=== PATIENT | female | born 1955 | race Caucasian/White ===

== ENCOUNTER 2017-08-18 12:06 | Emergency (ER) | payer OTHER ==
[~2017-08-18] VITALS: Ht 157.5 cm; Wt 70.0 kg
[2017-08-18 12:16] VITALS: Ht 157.5 cm; Wt 70.0 kg
[2017-08-18] MEDS ORDERED: IPRATROPIUM (NEB) 0.5 MG/2.5 ML AMP NEB STA (12:27)
[2017-08-18] MEDS ORDERED: ALBUTEROL 0.5% (NEB) 2.5 MG/0.5 ML AMP NEB STA (12:27)
[2017-08-18 12:42] LABS: BASOPHIL # 0.1 10^3/ul (0.0-0.1); BASOPHILS % 1.1 % (0.0-2.0); EOSINOPHILS # 0.2 10^3/ul (0.0-0.5); EOSINOPHILS % 2.9 % (0.0-7.0); HEMATOCRIT 40.4 % (37.0-47.0); HEMOGLOBIN 13.9 g/dl (12.0-16.0); LYMPHOCYTES # 2.4 10^3/ul (0.8-2.9); LYMPHOCYTES % 33.7 % (15.0-51.0); MEAN CORPUSCULAR HEMOGLOBIN 31.5 pg (29.0-33.0); MEAN CORPUSCULAR HGB CONC 34.4 g/dl (32.0-37.0); MEAN CORPUSCULAR VOLUME 91.6 fl (82.0-101.0); MONOCYTE # 0.6 10^3/ul (0.3-0.9); MONOCYTES % 8.6 % (0.0-11.0); NEUTROPHIL # 3.8 10^3/ul (1.6-7.5); NEUTROPHILS % 53.6 % (39.0-77.0); PLATELET COUNT 222 10^3/UL (140-415); RED BLOOD COUNT 4.41 10^6/ul (4.20-5.40); RED CELL DISTRIBUTION WIDTH 12.4 % (11.5-14.5)
--- NOTE | 2017-08-18 12:43 | RADRPT ---
PROCEDURE: Chest x-ray CLINICAL INDICATION: Chest pain TECHNIQUE: Chest single view COMPARISON: None FINDINGS: The heart is normal in size. The pulmonary vessels are normal in caliber. The lungs are clear. Th e costophrenic angles are sharp. The visualized bony thorax is unremarkable. IMPRESSION: No acute cardiopulmonary disease. Mild atherosclerotic aortic calcification RPTAT: HH .Cam Ralph MD, Date Time Electronically viewed and signed by .Cam Ralph MD, MD on 08/18/2017 12:42 .W/
[2017-08-18 13:01] LABS: ANION GAP 15 (8-16); BLOOD UREA NITROGEN 16 mg/dl (7-20); CARBON DIOXIDE 27 mmol/L (21-31); CHLORIDE 102 mmol/L (97-110); CREATININE 0.73 mg/dl (0.44-1.00); GLUCOSE 88 mg/dl (70-220); POTASSIUM 3.4 mmol/L (3.5-5.1); SODIUM 141 mmol/L (135-144)
[2017-08-18 13:17] LABS: TROPONIN-I < 0.012 ng/ml (0.00-0.12)
[2017-08-18 13:42] VITALS: BP 146/76; PULSE 72; RESP 18; TEMP 98.1
--- NOTE | 2017-08-18 13:42 | ERD ---
ER Documentation Chief Complaint Chief Complaint CHEST PAIN FOR 3 DAYS. SEEN AT CLINIC.SENT HERE FOR FURTHER EVAL. NO N/V/ HPI This is a 61-year-old female who presents to the emergency room for evaluation of chest pain, cough, and mild shortness of breath. The patient states that her symptoms have been present for 3 days duration she states that they are worse every time she coughs. She states that she has had a runny nose and states that is she has had a dry cough which is nonproductive. The patient denies any radiation of the pain and describes it as an achy pain. She denies any relieving factors for her pain and came to the emergency room today for evaluation of her symptoms. The patient denies any nausea, vomiting, dizziness , diaphoresis associated with her symptoms ROS All systems reviewed and are negative except as per history of present illness. PMhx/Soc History of Surgery: No Anesthesia Reaction: No Hx Neurological Disorder: No Hx Respiratory Disorders: No Hx Cardiac Disorders: Yes (HTN ) Hx Psychiatric Problems: No Hx Miscellaneous Medical Probl: Yes (HYPOTHYROIDISM , ARTHRITIS ) Hx Alcohol Use: No Hx Substance Use: No Hx Tobacco Use: No Smoking Status: Never smoker Physical Exam Vitals Vital Signs Date Time Temp Pulse Resp B/P Pulse Ox O2 Delivery O2 Flow Rate FiO2 08/18/17 12:55 68 18 140/79 100 Nasal Cannula 2.0 08/18/17 12:48 Nasal Cannula 2 08/18/17 12:40 54 20 95 21 08/18/17 12:16 98.5 82 18 131/76 98 Physical Exam INITIAL VITAL SIGNS: Reviewed by me GENERAL: The patient is well developed and appropriate for usual state of health in no apparent distress HEENT: Bilateral nasal congestion, pupils equal, round, and reactive to light. EOMI. There is no scleral icterus. NECK: C-spine is soft and supple, there is no meningismus. There is no cervical lymphadenopathy. LUNGS: Expiratory wheezing auscultated bilaterally HEART: Regular rate and rhythm, no murmurs, clicks, rubs or gallops. ABDOMEN: Soft, non-tender, non-distended. There are bowel sounds in all four quadrants. No rebound or guarding. EXTREMITIES: There is no peripheral cyanosis or edema. No focal swelling or erythema. NEUROLOGICAL: The patient moves all four extremities with 5/5 strength. Cranial nerves II - XII are intact. Normal gait. Alert and oriented SKIN: There is no apparent rash or petechiae. HEME/LYMPHATIC: There is no evidence of excessive bruising or lymphedema. PSYCHIATRIC: The patient does not appear anxious or depressed. Result Diagram: 08/18/17 1222 08/18/17 1222 Results 24 hrs Laboratory Tests Test 08/18/17 12:22 White Blood Count 7.010^3/ul Red Blood Count 4.4110^6/ul Hemoglobin 13.9g/dl Hematocrit 40.4% Mean Corpuscular Volume 91.6fl Mean Corpuscular Hemoglobin 31.5pg Mean Corpuscular Hemoglobin Concent 34.4g/dl Red Cell Distribution Width 12.4% Platelet Count 21209^3/UL Mean Platelet Volume 12.0fl Neutrophils % 53.6% Lymphocytes % 33.7% Monocytes % 8.6% Eosinophils % 2.9% Basophils % 1.1% Nucleated Red Blood Cells % 0.0/100WBC Neutrophils # 3.810^3/ul Lymphocytes # 2.410^3/ul Monocytes # 0.610^3/ul Eosinophils # 0.210^3/ul Basophils # 0.110^3/ul Nucleated Red Blood Cells # 0.010^3/ul Sodium Level 141mmol/L Potassium Level 3.4mmol/L Chloride Level 102mmol/L Carbon Dioxide Level 27mmol/L Anion Gap 15 Blood Urea Nitrogen 16mg/dl Creatinine 0.73mg/dl Glucose Level 88mg/dl Calcium Level 9.0mg/dl Troponin I < 0.012ng/ml Current Medications Medications (Trade) Dose Ordered Sig/Shoaib Route PRN Reason Start Time Stop Time Status Last Admin Dose Admin Albuterol (Proventil 0.5% (Neb)) 10 mg ONCE STAT NEB 08/18/17 12:27 08/18/17 12:29 DC 08/18/17 12:40 Ipratropium Nathalie (Atrovent 0.02% (Neb)) 0.5 mg ONCE STAT NEB 08/18/17 12:27 08/18/17 12:29 DC 08/18/17 12:39 Procedures/MDM EKG: #1 Rate/Rhythm: [Normal Sinus Rhythm] QRS, ST, T-waves: [No changes consistent w/ acute ischemia] Impression: [No evidence of ischemia or arrhythmia] EKG: #2 Rate/Rhythm: [Normal Sinus Rhythm] QRS, ST, T-waves: [No changes consistent w/ acute ischemia] Impression: [No evidence of ischemia or arrhythmia] Chest X-ray 1V Interpreted by me: Soft Tissue: No acute abnormalities Bones: No acute abnormalities Mediastinum/Cardiac Silhouette/Lungs: [No acute abnormalities] This 61-year-old female presents to the emergency room for evaluation of nasal congestion, cough and shortness of breath and chest discomfort. On my examination she did have bilateral wheezing. The patient had nasal congestion, and the patient was subsequently given a breathing treatment with albuterol and Atrovent. The patient underwent a cardiac workup in the emergency room. Her troponin is negative. 2 EKG's were obtained and both are nonischemic with no signs of ST evolutionary changes. The patient was reevaluated after she finished a breathing treatment and states that she has no chest pain at this time. She says she is feeling much better. I feel this patient could be suffering from acute bronchitis. This patient was given Solu-Medrol in the emergency room. She will be discharged home at this time with a prescription for albuterol, and prednisone for acute bronchitis. I doubt ACS at this time as this patient did have wheezing, and complete resolution of her symptoms after beta-2 agonist. The patient was advised he can return to the emergency room anytime for reevaluation. My suspicion for PE is low at this time given this patient's heart rate, the fact that she is not hypoxic. Differential diagnoses entertained was broad with potential high acuity. Patient has been evaluated for acute myocardial infarction, unstable angina, aortic dissection, pulmonary embolism, other intrathoracic and cardiac concerns. Ultimately the patient's evaluation is nondiagnostic. Based on the patient's lack of risk factors, as well as the patient's clinical, laboratory, and imaging data, the patient appears to be low risk for these high risk causes of chest pain. Departure Diagnosis: Primary Impression: Acute bronchitis Additional Impression: Chest pain Condition: Stable [id number] JUAREZ Aug 18, 2017 13:42
[2017-08-18] MEDS ORDERED: ALBU8.5H3 INH (13:43)
[2017-08-18] MEDS ORDERED: PRED20TA PO (13:43)
[2017-08-18] MEDS ORDERED: METHYLPREDNISOLONE 125 MG INJ IV ONE (14:00)
== END 2017-08-18 13:56 | disposition home or self-care (01) ==
LOC: E/R 12:06
DX: J20.9 Acute bronchitis, unspecified (principal); I10 Essential (primary) hypertension; E03.9 Hypothyroidism, unspecified
CPT/HCPCS: 36415; 71010; 80048; 84484; 85025; 94664; 96374; J2930; Z7502; Z7610; 93005